=== PATIENT | male | born 1955 ===

== ENCOUNTER 2025-01-25 14:47 | Outpatient (REF) | payer BC, SELFPAY ==
[2025-01-25 21:29] LABS: HCT 46.5 % (40.0-50.0); HGB 15.7 g/dL (13.5-17.5); MCH 30.9 pg (27.0-33.0); MCHC 33.8 % (32.0-36.0); MCV 92 fL (80-95); MPV 10.2 fL (8.0-11.0); Platelet Count 267 10^3/uL (130-400); RBC 5.08 10^6/uL (4.36-5.78); RDW 12.9 % (11.8-14.1); WBC 7.01 10^3/uL (4.4-10.8)
[2025-01-25 21:51] LABS: Hemoglobin A1C 6.1 % (<5.7)
[2025-01-25 21:54] LABS: Iron 103 ug/dL (65-175); Total Iron Binding Capacity 314 ug/dL (250-450); Transferrin Sat 33 % (20-55)
[2025-01-25 22:18] LABS: ALT 24 U/L (16-63); AST 21 U/L (15-37); Albumin 4.4 g/dL (3.4-5.0); Alkaline Phosphatase 61 U/L (46-116); Anion Gap 8.2 mmol/L (3-11); BUN 14 mg/dL (7-18); Bilirubin, Total 0.8 mg/dL (0.2-1.0); CO2 27.8 mmol/L (21.0-32.0); CREATININE 1.3 mg/dL (0.70-1.30); Calcium 9.4 mg/dL (8.5-10.1); Calculated LDL 83 mg/dL (<100); Chloride 105 mmol/L (98-107); Cholesterol 141 mg/dL (<200); Estimated GFR 59.47 (mL/min/1.73m2); Glucose 109 mg/dL (74-106); HDL Cholesterol 49 mg/dL (>or=40); Potassium 4.6 mmol/L (3.5-5.1); Sodium 141 mmol/L (136-145); TSH 2.48 uIU/mL (0.36-3.74); Triglyceride 45 mg/dL (<150); Vitamin B12 316 pg/mL (193-986)
== END 2025-01-25 14:48 | disposition home or self-care (01) ==
LOC: NCHCN 14:47
PROVIDERS: PCP Physician Assistant; Visit Provider Physician Assistant
DX: E63.8 Other specified nutritional deficiencies (principal); E78.2 Mixed hyperlipidemia; R73.03 Prediabetes; K76.0 Fatty (change of) liver, not elsewhere classified; R53.83 Other fatigue
CPT/HCPCS: 80053; 80061; 85027; 82607; 83036; 83540; 83550; 84443